=== PATIENT | male | born 1970 | race Two or more races ===

== ENCOUNTER 2020-04-29 13:09 | Outpatient (REF) | payer OTHER, SELFPAY ==
[2020-04-29 13:29] LABS: COVID-19 Test Negative (Negative)
== END 2020-04-29 13:10 | disposition home or self-care (01) ==
LOC: HO.LAB 13:09
PROVIDERS: Visit Provider Internal Medicine
DX: Z20.828 Contact with and (suspected) exposure to other viral communicable diseases (principal)
CPT/HCPCS: 87635

== ENCOUNTER 2020-05-05 16:02 | Outpatient (REF) | payer OTHER, SELFPAY ==
[2020-05-05 18:01] LABS: SARS COV2 PCR INHOUSE NEGATIVE (Negative)
== END 2020-05-05 16:03 | disposition home or self-care (01) ==
LOC: HO.LAB 16:02
PROVIDERS: Visit Provider Internal Medicine
DX: Z20.828 Contact with and (suspected) exposure to other viral communicable diseases (principal)
CPT/HCPCS: 87635

== ENCOUNTER 2020-05-08 04:49 | Outpatient (REF) | payer OTHER, SELFPAY ==
[2020-05-08 06:56] LABS: SARS COV2 PCR INHOUSE NEGATIVE (Negative)
== END 2020-05-08 04:50 | disposition home or self-care (01) ==
LOC: HO.LAB 04:49
PROVIDERS: Visit Provider Internal Medicine
DX: Z20.828 Contact with and (suspected) exposure to other viral communicable diseases (principal)
CPT/HCPCS: 87635